=== PATIENT | female | born 1990 | race Caucasian/White ===

== ENCOUNTER 2019-04-16 18:52 | Emergency (ER) | payer OTHER ==
[~2019-04-16] VITALS: Ht 157.5 cm; Wt 52.3 kg
[2019-04-16 20:39] VITALS: BP 122/78
== END 2019-04-16 20:40 | disposition home or self-care (01) ==
LOC: EMS 18:55
DX: S00.83XA Contusion of other part of head, initial encounter (principal); Y04.2XXA Assault by strike against or bumped into by another person, initial encounter; Y93.89 Activity, other specified; Y92.89 Other specified places as the place of occurrence of the external cause; Y99.8 Other external cause status